=== PATIENT | male | born 1965 | race Caucasian/White ===

== ENCOUNTER 2017-03-18 21:12 | Inpatient (IN) | END 2017-03-31 17:25 | disposition home or self-care (01) | DRG 291 ==

== ENCOUNTER 2017-07-01 10:27 | Day surgery (SDC) | END 2017-07-01 15:42 | disposition home or self-care (01) ==

== ENCOUNTER 2018-08-05 15:53 | Emergency (ER) | payer OTHER ==
[~2018-08-05] VITALS: Ht 149.9 cm; Wt 55.0 kg
[~2018-08-05 15:53] MED LIST: AMLO-147 PO; ASPI81TA52 PO; ATOR40TA68 PO; BUME1TAB PO; CALC667C PO; CARV25TA79 PO; CLON-379 PO; FOLI1CAP PO; LANT3I SC; NOVO3I SC; SVL800C PO
[2018-08-05 16:18] VITALS: BP 131/77; PULSE 74; RESP 19; Ht 149.9 cm; Wt 55.0 kg
[2018-08-05] MEDS ORDERED: FLUT9.9S NASAL (18:39)
--- NOTE | 2018-08-05 18:43 | ERD ---
ER Documentation Chief Complaint Chief Complaint nasal cyst HPI 53-year-old male was referred by [facility] for evaluation of nasal congestion. He has possibly visible polyps. He has a history of intermittent nasal congestion for several months. Denies fevers, vomiting, shortness of breath or chest pain. ROS All systems reviewed and are negative except as per history of present illness. Medications Home Meds Active Scripts Fluticasone Propionate (Flonase Allergy Relief) 9.9 Ml [place].susp, 1 SPRAY NASAL BID, #1 BOTTLE TO EACH NOSTRIL Prov:SOPHY ALMANZA MD 08/05/18 Reported Medications Calcium Acetate* (Calcium Acetate*) 667 Mg Capsule, 2001 MG PO WITH MEALS, #90 CAP 07/01/17 Sevelamer Hcl* (Renagel*) 800 Mg Tablet, 400 MG PO WITH MEALS, TAB 07/01/17 Insulin Glargine* (Lantus*) 100 Unit/Ml Soln, 1 UNIT SC QHS, #1 VIAL 07/01/17 Insulin Aspart* (Novolog Insulin Pen*) 100 Unit/Ml Soln, 4 UNIT SC WITH MEALS, EA 07/01/17 Clonidine Hcl* (Clonidine Hcl*) 0.1 Mg Tab, 0.1 MG PO TID PRN for ELEVATED BLOOD PRESSURE, TAB 07/01/17 Carvedilol* (Carvedilol*) 25 Mg Tablet, 25 MG PO BID, #60 TAB 07/01/17 Bumetanide* (Bumetanide*) 1 Mg Tablet, 1 MG PO BID, TAB 07/01/17 Atorvastatin* (Atorvastatin*) 40 Mg Tablet, 40 MG PO QHS, #30 TAB 07/01/17 Aspirin (Low Dose Aspirin) 81 Mg Tablet.dr, 81 MG PO DAILY, #30 TAB 07/01/17 Amlodipine Besylate* (Amlodipine Besylate*) 10 Mg Tablet, 10 MG PO DAILY, #30 TAB 07/01/17 Folic Acid/Vitamin B Comp W-C (Nephrocaps Capsule) 1 Mg Capsule, 1 MG PO DAILY, CAP 07/01/17 Allergies Allergies: Coded Allergies: No Known Allergy (Unverified , 08/05/18) PMhx/Soc History of Surgery: No Anesthesia Reaction: No Hx Neurological Disorder: No Hx Respiratory Disorders: No Hx Cardiac Disorders: Yes (HTN) Hx Psychiatric Problems: No Hx Miscellaneous Medical Probl: Yes (LOW IRON COUNT PER FAMILY) Hx Alcohol Use: No Hx Substance Use: No Hx Tobacco Use: No Physical Exam Vitals Vital Signs Date Temp Pulse Resp B/P (MAP) Pulse Ox O2 O2 Flow FiO2 Time Delivery Rate 08/05/18 98.0 74 19 131/77 97 16:18 (95) Physical Exam Const: No acute distress Head: Atraumatic Eyes: Normal Conjunctiva ENT: Normal External Ears, Nose and Mouth. Severe rhinophyma. Visible nasal polyps on the left. No erythema, warmth, maxillary tenderness. Neck: Full range of motion. No meningismus. Resp: Clear to auscultation bilaterally Cardio: Regular rate and rhythm, no murmurs Abd: Soft, non tender, non distended. Normal bowel sounds Skin: No petechiae or rashes Back: No midline or flank tenderness Ext: No cyanosis, or edema Neur: Awake and alert Psych: Normal Mood and Affect Procedures/MDM PROCEDURE: CT Sinuses. CLINICAL INDICATION: Obstruction and shortness of breath TECHNIQUE: A CT of the sinuses was performed on a GE 64-slice CT scanner utilizing thin section axial images. Sagittal and coronal reformatted images were made. The CTDIvol is 23.57 mGy and the DLP is 362.61 mGycm. One or more the following dose reduction techniques were utilized: Automated exposure control, adjustment of the mA/ or kV according to patient's size, or use of iterative reconstruction technique. DICOM images are available for review. COMPARISON: 02/28/2019 FINDINGS: The sinuses are well-developed . Images the maxillary sinuses demonstrate there is near total opacification of the right maxillary sinus with aeration of the right upper sinus with linear hyperdensities within the middle the sinus, new since previous exam. There is complete opacification of the left maxillary sinus with also with central linear and larger hyperdensities. There is obstruction bilateral ostiomeatal units. There is thinning of the left medial maxillary wall and uncinate process with partial erosion, stable. There is also mild thinning of the right medial maxillary wall. Images the ethmoid air cells demonstrate near total opacification of the left anterior posterior ethmoid air cells with mild right anterior ethmoid mucosal thickening. There is complete opacification of the left sphenoid sinus. The right sphenoid sinus is clear. The right recess is patent. There is obstruction of the left sphenoethmoidal recess. Frontal recesses demonstrate a left inferior frontal mucosal thickening with opacification of the left frontal recess. The right frontal sinus and recess are patent. Images the nasal cavity demonstrate no significant nasal septal deviation. Soft tissue densities are seen within the left posterior nasal cavity with obstruction and poor visualization of portions of the left middle turbinate. There is obstruction of the left inferior meatus. There is incidental greer bullosa of the right middle turbinate, stable. Soft tissue densities extend from the posterior nasal cavity into the nasopharynx, not significantly change since previous exam. IMPRESSION: CT of the sinuses demonstrates presence of left nasal cavity soft tissue mass 6 extending into the posterior nasopharynx likely representing polyps . Severe left-sided paranasal sinus disease with complete opacification of the left maxillary and sphenoid sinus and near total opacification left sphenoid sinuses. There is complete obstruction of the left frontal and sphenoethmoidal recesses as well as left ostiomeatal unit. New, near total opacification the right maxillary sinus and right ostiomeatal unit. RPTAT: [facility] Physician Pauly Date Time Electronically viewed and signed by Physician Pauly on 08/05/2018 17:50 RL/ CC: SOPHY ALMANZA MD She presents with severe rhinophyma, signs of nasal polyps, chronic appearing maxillary opacification. He has no signs or symptoms of acute bacterial sinusitis. I am recommending ENT evaluation as an outpatient for definitive treatment. Patient has no emergent signs or symptoms or conditions requiring admission or emergent treatment. He may need authorization from primary doctor for specialist visit. Referred to local ENT with return precautions for fevers, worsening headaches, new worsening symptoms. The patient was stable with no new complaints during the ER course. Clinically, there is no current evidence to suggest meningitis, sepsis, acute abdomen, pneumonia, stroke, acute coronary syndrome, pulmonary embolism, aortic dissection or any other emergent condition appearing to require further evaluation or hospitalization. Patient counseled regarding my diagnostic impression and care plan. Prior to discharge all questions answered. Pt agrees with treatment plan and understands strict return precautions. Pt is instructed to follow up with primary care provider within 24- 48 hours. Precautionary instructions provided including instructions to return to the ER if not improving or for any worsening or changing symptoms or concerns. Disclaimer: Inadvertent spelling and grammatical errors are likely due to EHR/dictation software use and do not reflect on the overall quality of patient care. Also, please note that the electronic time recorded on this note does not necessarily reflect the actual time of the patient encounter. Departure Diagnosis: Primary Impression: Sinusitis Sinusitis location: maxillary Chronicity: unspecified Qualified Codes: J32.0 - Chronic maxillary sinusitis Additional Impression: Nasal polyps Condition: Stable Patient Instructions: Sinusitis, No Abx, Beclomethasone Dipropionate Nasal spray Referrals: JANE SOLORZANO MD, STEPHEN H MD Additional Instructions: madisyn polyps. necesita tratamiento del specialista en la clinica. Va al xie doctor/ specialista para mas evaluacon en el proximo semana. posiblemente necesita autorizado de xie doctor primario para specialista. Regresa para fiebre, o mas o nueva simptomas. SOPHY ALMANZA MD Aug 05, 2018 18:43
== END 2018-08-05 18:49 | disposition home or self-care (01) ==
LOC: FTE 15:53
DX: J32.0 Chronic maxillary sinusitis (principal); J33.9 Nasal polyp, unspecified; I10 Essential (primary) hypertension; E11.9 Type 2 diabetes mellitus without complications; Z79.4 Long term (current) use of insulin; Z79.82 Long term (current) use of aspirin
CPT/HCPCS: 70486; Z7502